=== PATIENT | female | born 1960 ===

== ENCOUNTER 2017-04-14 08:14 | Day surgery (SDC) | payer MEDICARE, OTHER ==
[2016-07-19 16:11] VITALS: BMI 26.1
[2017-04-14] MEDS ORDERED: Lactated Ringer's 500 ML IV ONE (09:35)
[2017-04-14 10:27] VITALS: TEMP 96.8; O2SAT 100
[2017-04-14 11:28] VITALS: BP 117/72; PULSE 74; RESP 16
== END 2017-04-14 11:47 | disposition home or self-care (01) ==
LOC: H.ENDO 08:14
PROVIDERS: ATTEND Internal Medicine Gastroenterology
DX: K29.50 Unspecified chronic gastritis without bleeding (principal); R10.13 Epigastric pain; Z12.11 Encounter for screening for malignant neoplasm of colon; K64.1 Second degree hemorrhoids
CPT/HCPCS: 43239; 45378; 88305; J7120